=== PATIENT | female | born 1985 | race Caucasian/White ===

== ENCOUNTER 2016-06-15 06:12 | Day surgery (SDC) | payer OTHER ==
[~2016-06-15 06:12] MED LIST: ADVIL PO
== END 2016-06-15 23:59 | disposition home or self-care (01) ==
LOC: MSC 06:12
PROVIDERS: Surgery Plastic and Reconstructive Surgery
PROC: 0J0L0ZZ Alteration of Right Upper Leg Subcutaneous Tissue and Fascia, Open Approach (ICD-10-PCS; 2016-06-15)
PROC: 0J070ZZ Alteration of Back Subcutaneous Tissue and Fascia, Open Approach (ICD-10-PCS; 2016-06-15)
PROC: 0J080ZZ Alteration of Abdomen Subcutaneous Tissue and Fascia, Open Approach (ICD-10-PCS; 2016-06-15)
PROC: 0HQV0ZZ Repair Bilateral Breast, Open Approach (ICD-10-PCS; 2016-06-15)
PROC: 0J0M0ZZ Alteration of Left Upper Leg Subcutaneous Tissue and Fascia, Open Approach (ICD-10-PCS; principal; 2016-06-15 07:15)
DX: T85.898A Other specified complication of other internal prosthetic devices, implants and grafts, initial encounter (principal); N64.81 Ptosis of breast; Z88.0 Allergy status to penicillin
CPT/HCPCS: 84703; A9270-GY; J0690; J1450; J2175; J2250; J2270; J2405; J2550; J2710; J3010